=== PATIENT | male | born 1990 | race American Indian/Alaskan Native ===

== ENCOUNTER 2021-09-24 05:21 | Emergency (ER) | payer SELFPAY ==
--- NOTE | 2021-09-24 06:23 | Emergency Department Report ---
ED Dizziness HPI - General Chief Complaint: Dizziness Stated Complaint: DIZZINESS NAUSEA Time Seen by Provider: 09/24/21 06:18 Source: patient Mode of arrival: Ambulatory Limitations: No Limitations - History of Present Illness Initial Comments: Patient presented with an episode of dizziness and nausea this morning. When he went to bed, he felt well. He woke up at about 3 AM. He states that he felt off. He states that he was lightheaded and felt off balance. He reports that his dizziness. There was no vertiginous symptoms. He did not have any visual changes. He had no numbness or tingling in the arms or legs. He did not have any weakness in the arms or legs. He states that he felt as though he was having trouble speaking although there was nobody there to speak to. He states it he seemed to have trouble finding words in his mind. Patient states that this episode lasted 15 minutes. It resolved. He decided to come in this morning because it "scared him." Patient has never had symptoms like this before. He has no symptoms now. He states that he feels back to normal. Again, this was several hours prior to arrival. - Related Data Previous Rx's Medication Instructions Recorded Last Taken Type Amlodipine Besylate [Norvasc] 5 mg PO DAILY #30 tab 09/24/21 Unknown Rx ED Review of Systems ROS: Stated complaint: DIZZINESS NAUSEA Other details as noted in HPI Comment: All other systems reviewed and negative Constitutional: denies: fever Eyes: denies: eye pain ENT: denies: throat pain Respiratory: denies: cough Cardiovascular: denies: chest pain Endocrine: denies: unexplained weight loss Gastrointestinal: denies: abdominal pain Genitourinary: denies: dysuria Musculoskeletal: denies: back pain Skin: denies: rash Neurological: as per HPI Hematological/Lymphatic: denies: easy bruising ED Past Medical Hx - Past Medical History Previous Medical History?: Yes Hx Hypertension: Yes (Previous history of hypertension, no longer treated) - Surgical History Past Surgical History?: No - Family History Family history: CAD/[place], diabetes, hypertension - Medications Home Medications: Home Medications Medication Instructions Recorded Confirmed Last Taken Type Amlodipine Besylate [Norvasc] 5 mg PO DAILY #30 tab 09/24/21 Unknown Rx ED Physical Exam - General Limitations: No Limitations, Other (Pulse ox noted and normal) General appearance: alert, in no apparent distress - Head Head exam: Present: atraumatic, normocephalic - Eye Eye exam: Present: normal appearance, EOMI. Absent: scleral icterus - ENT ENT exam: Present: normal orophraynx, normal external ear exam - Neck Neck exam: Present: normal inspection. Absent: meningismus - Respiratory Respiratory exam: Present: normal lung sounds bilaterally. Absent: respiratory distress - Cardiovascular Cardiovascular Exam: Present: regular rate, normal rhythm - GI/Abdominal GI/Abdominal exam: Present: soft. Absent: tenderness - Extremities Exam Extremities exam: Present: normal capillary refill - Back Exam Back exam: Absent: CVA tenderness (R), CVA tenderness (L) - Neurological Exam Neurological exam: Present: alert, oriented X3, CN II-XII intact, normal gait, reflexes normal, other (NIH score 0). Absent: motor sensory deficit - Psychiatric Psychiatric exam: Present: normal affect, normal mood - Skin Skin exam: Present: warm, dry ED Course Vital Signs 09/24/21 09/24/21 05:23 07:21 Temperature 98.0 F Pulse Rate 88 Respiratory 18 Rate Blood Pressure 183/108 Blood Pressure 160/99 [Right] O2 Sat by Pulse 98 Oximetry - Reevaluation(s) Reevaluation #1: 09/24/21 06:23 CT ordered. Reevaluation #2: 09/24/21 07:19 CT noted. ED Medical Decision Making - Medical Decision Making Patient presented with a transient episode of what he perceives as a speech issue associated with some lightheadedness. He did not have any other focal neurologic findings. He did not have other symptoms suggestive of stroke. CT fails to demonstrate stroke, bleed, tumor, or mass. NIH score is 0. I do not believe this represents any type of true stroke or TIA. Patient's blood pressure was elevated here. Whether that is due to anxiety over the situation or whether he truly has untreated or uncontrolled hypertension is not clear. He did get a prescription for blood pressure medicine with instructions on following blood pressures at home. There is no history of diabetes. He did not have polydipsia or polyuria. I am not concerned that this represents any type of diabetic pathology. Critical Care Time: No Critical care attestation.: If time is entered above; I have spent that time in minutes in the direct care of this critically ill patient, excluding procedure time. ED Disposition Clinical Impression: Episode of change in speech, Elevated blood pressure reading Disposition: 01 HOME / SELF CARE / HOMELESS Is pt being admited?: No Condition: Stable Instructions: Aphasia, Preventing Hypertension, Managing Your Hypertension Additional Instructions: AVOID SALT AND CAFFEINE. DRINK WATER. SEE A REGULAR DOCTOR FOR RECHECK. RETURN FOR PROBLEMS. Prescriptions: Amlodipine Besylate [Norvasc] 5 mg PO DAILY #30 tab Referrals: PRIMARY CAREMD [Primary Care Provider] - 3-5 Days SCOTTY ESCOBAR MD [Staff Physician] - 3-5 Days
--- NOTE | 2021-09-24 07:06 | Cat Scan Report ---
CT head without contrast INDICATION : Speech change. TECHNIQUE: Axial imaging performed from the skull apex through the skull base without the use of con trast. All CT scans at this location are performed using CT dose reduction for ALARA by means of aut omated exposure control. COMPARISON: None FINDINGS: Parenchyma: No acute intracranial hemorrhage or parenchymal abnormality. Ventricles: Ventricles are normal in size and appear symmetric. Soft tissues: Soft tissues including the orbits appear normal. Bones: No acute osseous abnormality. Sinuses: Sinuses and mastoid air cells are clear. IMPRESSION: No acute abnormality. Signer Name: Sam Ball MD Signed: 09/24/2021 7:02 AM Workstation Name: [id number]
[2021-09-24 07:22] VITALS: BP 160/99
== END 2021-09-24 11:54 | disposition home or self-care (01) ==
LOC: ED 05:21
DX: R03.0 Elevated blood-pressure reading, without diagnosis of hypertension (principal); I10 Essential (primary) hypertension; R42 Dizziness and giddiness; Z79.899 Other long term (current) drug therapy
CPT/HCPCS: 70450; 99283